=== PATIENT | male | born 1965 | race Caucasian/White ===

== ENCOUNTER → 2024-10-31 06:45 | Day surgery (SDC) | payer BC, SELFPAY ==
[2024-10-17 09:32] LABS: Blood Urea Nitrogen 23 mg/dl (9-20); Calcium 9.4 mg/dl (8.4-10.2); Carbon Dioxide 27 mmol/L (22-30); Chloride 103 mmol/L (98-107); Glucose 114 mg/dl (70-99); Potassium 4.5 mmol/L (3.5-5.1); Sodium 140 mmol/L (135-145); eGFR > 60.00
[2024-10-17 13:42] VITALS: BMI 32.6
[2024-10-31] VITALS (7 sets, daily range): BP systolic 123–141; BP diastolic 75–90; BMI 32.6; BMI 31.8
[2024-10-31] MEDS: TYLENOL 1000 MG PO (16:16)
--- NOTE | 2024-10-31 19:56 | PTCARENOTE ---
Pt brought to PACU. Juan Ramon to see, report given to PACU
--- NOTE | 2024-10-31 21:15 | W.IMMPOSTOP ---
Surgical Immed Post Op Note
-
Primary Surgeon: Clay Delatorre MD
Assisting Surgeon:
Pre-op Diagnosis: left knee medial meniscal tear
Post-op Diagnosis: left knee medial meniscal tear
Procedure Performed: arthroscopic left knee partial medial meniscectomy
Anesthesia Type: general
Specimen / Cultures: none
Estimated Blood Loss: 1mL
Tourniquet time: 37 minutes @ 250mm Hg
Complications: none apparent
Operative Findings: posterior horn medial meniscus tear with fragment in meniscotibial recess; intact lateral meniscus, medial and lateral femoral condyles; trochlea and patella with grade 1 chondrosis
Operative dictation # [id number]
[2024-10-31] MEDS: DILAUDID 0.5 MG IV (21:23)
[2024-10-31] MEDS: TORADOL 15 MG IV (21:23)
[2024-10-31] MEDS: ROXICODONE 5 MG PO (21:23)
== END ==
LOC: SDS 06:45
PROVIDERS: ATTENDING PHYSICIAN Student in an Organized Health Care Education/Training Program; FAMILY PHYSICIAN Registered Nurse
DX: S83.207A Unspecified tear of unspecified meniscus, current injury, left knee, initial encounter (principal); X58.XXXA Exposure to other specified factors, initial encounter
CPT/HCPCS: 29881; 36415; 80048; 93005